=== PATIENT | female | born 1980 | race Caucasian/White ===

== ENCOUNTER 2020-11-21 19:24 | Emergency (ER) | payer MEDICAID, SELFPAY ==
--- NOTE | ~2020-11-21 | XR_ITS ---
EXAMINATION: XR CHEST CLINICAL INFORMATION: Upper respiratory symptoms COMPARISON: None TECHNIQUE: 2 views of the chest were obtained. FINDINGS: Lungs are clear. No focal consolidation or mass. Normal pulmonary vascularity. No pleural effusion or pneumothorax. Normal heart size. No acute osseous abnormality. XR/XR chest 2V IMPRESSION: No acute pulmonary disease.
[2020-11-21 21:06] VITALS: BP 119/68; PULSE 88; RESP 18; TEMP 37.1; O2SAT 96; BMI 33.2
[2020-11-21 22:00] VITALS: BP 107/70; PULSE 85; RESP 15; TEMP 36.4; O2SAT 96
--- NOTE | 2020-11-21 22:01 | ED.URI ---
HPI - URI/Sore Throat General Chief Complaint: Upper Respiratory Symptoms Stated Complaint: flu symptoms Time Seen by Provider: 11/21/20 21:32 Source: patient Mode of arrival: ambulatory Limitations: no limitations History of Present Illness HPI Narrative: 40-year-old female here with complaints of cough, headache, sore throat and body aches for several days. Patient did receive a COVID vaccine September. No fevers, shortness of breath or chest pain Related Data Allergies Allergy/AdvReac Type Severity Reaction Status Date / Time No Known Allergies Allergy Verified 11/21/20 21:06 Review of Systems Review of Systems: Yes all other systems are reviewed and are negative Constitutional: Constitutional: Reports no additional constitutional complaints, Reports body ache(s), Denies chills, Denies fever(s), Reports headache(s) and Denies weakness Eyes: Eyes: Reports no additional eye complaints and Denies change in vision ENT: Reports system reviewed and no additional complaints, except as documented, Denies dizziness, Reports headache(s), Denies nasal congestion, Denies nasal discharge, Denies neck pain and Reports sore throat Cardiovascular: Cardiovascular: Reports no additional cardiovascular complaints, Denies chest pain, Denies leg edema and Denies dyspnea Respiratory: Respiratory: Reports no additional respiratory complaints, Reports cough and Denies dyspnea Gastrointestinal: Gastrointestinal: Reports no additional gastrointestinal complaints, Denies abdominal pain, Denies diarrhea, Denies nausea and Denies vomiting Genitourinary: Genitourinary: Reports no additional female genitourinary complaints and Denies urinary incontinence Musculoskeletal: Musculoskeletal: Reports no additional musculoskeletal complaints, Denies back pain, Denies arthralgias, Denies joint swelling, Denies neck pain, Denies numbness and Denies tingling Integumentary/Breasts: Skin/Breast: Reports system reviewed and no additional complaints, except as docu and Denies rash Neurologic: Reports system reviewed and no additional complaints, except as documented, Denies Abnormal speech present, Denies dizziness, Reports headache(s), Denies numbness, Denies tingling and Denies weakness PMFSH Past Medical History Attestation statement: The following information was validated with the patient. Source: old records reviewed and nursing notes reviewed Surgical History H/O abdominal surgery S/P cholecystectomy Social History Social History Advance Directives: No Advance Directives Information Provided: No Patient : No Physical Exam Vital Signs: Vital Signs: Last Vital Signs Temp 97.6 F 11/21/20 22:00 Pulse 85 11/21/20 22:00 Resp 15 11/21/20 22:00 BP 107/70 11/21/20 22:00 Pulse Ox 96 11/21/20 22:00 Body Mass Index 33.2 Const: General: cooperative, healthy appearing, comfortable and no acute distress Orientation/consciousness: patient oriented x3 Limitations: no limitations HENMT: Head: Yes normal to inspection Ears: hearing grossly normal bilaterally General nose exam: Normal external nose present Face and sinus: Yes normal facial exam Mouth: Normal oral and palatal mucosa present Throat: Yes posterior oropharynx normal Eyes: General: appearance normal, both eyes and all related structures Pupils: Equal, round and reactive pupils present Neck: Neck: Yes normal visual inspection Chest: Chest palpation & inspection: normal inspection of the chest Resp: Effort & Inspection: normal respiratory effort Auscultation: clear to auscultation bilaterally Cardio: Rate: regular rate Rhythm: regular rhythm Peripheral pulses: Peripheral pulses 2+ throughout GI: Inspection: Yes normal to inspection Palpation (GI): Soft to palpation and nontender Auscultation: normal bowel sounds Back/Spine/Pelvis: Thoracic/Lumbar Spine: thoracic and lumbar spine normal to inspection Skin: General skin exam: no rashes or lesions noted Neuro: General: patient oriented x3, no focal motor deficits and normal sensation to monofilament Cranial nerves: Yes Equal, round and reactive pupils present Cognition (Neuro): normal cognition Speech: No Abnormal speech present Gait exam (Neuro): Normal gait present Motor exam (neuro): 5/5 motor strength present throughout Extrem: General: Yes normal to inspection Course Course Course Narrative: URI symptoms for several days. Will check chest x-ray and COVID screen 1210-COVID screen negative. Likely viral. Reviewed worrisome signs and symptoms when to return to the emergency department. Comfortable discharge home. MDM - URI/Sore Throat Medical Records Attestation: I reviewed the patient's medical records. Lab Data Attestation: I reviewed the patient's lab results. Labs: Lab Results 11/21/20 Range/Units 21:16 Coronavirus (PCR) NEGATIVE (Negative) Influenza Type A (PCR) NEGATIVE (Negative) Influenza Type B (PCR) NEGATIVE (Negative) RSV RNA Qual (PCR) NEGATIVE (Negative) Imaging Data Chest x-ray: Attestation: I personally reviewed and interpreted this imaging study as follows: Radiologist's impression: [address] [address] XRay Report Signed Patient: Tanja Bland MR#: [id number] : 1980 Acct:[id number] Age/Sex: 40 / F ADM Date: 11/21/20 Loc: .ED Attending Dr: Ordering Physician: Generic ED Physician Date of Service: 11/21/20 Procedure(s): XR chest 2V Accession Number(s): [id number] cc: Generic ED Physician~ EXAMINATION: XR CHEST CLINICAL INFORMATION: Upper respiratory symptoms COMPARISON: None TECHNIQUE: 2 views of the chest were obtained. FINDINGS: Lungs are clear. No focal consolidation or mass. Normal pulmonary vascularity.? No pleural effusion or pneumothorax. Normal heart size. No acute osseous abnormality. XR/XR chest 2V IMPRESSION: No acute pulmonary disease. Discharge Plan Discharge Clinical Impression: Viral infection Pharyngitis Qualifiers: Pharyngitis/tonsillitis etiology: unspecified etiology Qualified Code(s): J02.9 - Acute pharyngitis, unspecified Patient Disposition: Home, Self-Care Instructions: Pharyngitis (ED), Viral Syndrome (ED) Additional Instructions: Increase fluids, rest Take Motrin or Tylenol if able as needed for pain or fever COVID screen is negative Referrals: Damaris Vasquez MD [Primary Care Provider] - 2 days
[2020-11-21] MEDS: Ibuprofen 600 MG TABLET PO (22:51)
--- NOTE | 2020-11-21 23:09 | PC.NURSE ---
REPORT GIVEN TO ANISA BERUMEN.
[2020-11-22 00:01] LABS: Influenza A PCR NEGATIVE (Negative); Influenza B PCR NEGATIVE (Negative); Resp Syncy Virus RNA Qual PCR NEGATIVE (Negative); SARS COV2 PCR INHOUSE NEGATIVE (Negative)
== END 2020-11-22 00:33 | disposition home or self-care (01) ==
PROVIDERS: Emergency Provider Emergency Medicine; PCP Family Medicine
DX: B34.9 Viral infection, unspecified (principal); J02.9 Acute pharyngitis, unspecified; R05 Cough; R51.9 Headache, unspecified; R50.9 Fever, unspecified; Z20.822 Contact with and (suspected) exposure to COVID-19; Z79.899 Other long term (current) drug therapy
CPT/HCPCS: 0241U; 36415; 71046; 99283; 99284

== ENCOUNTER 2021-11-14 08:41 | Emergency (ER) | payer MEDICAID, SELFPAY ==
[2021-11-14 08:43] VITALS: BP 148/78; PULSE 92; RESP 18; TEMP 37.1; O2SAT 96; BMI 34.7
[2021-11-14 12:20] LABS: MANUAL DIFF FLAG NO
[2021-11-14 12:22] LABS: Basophils Absolute Auto 0.1 X10*3/uL (0.0-0.2); Basophils Percent Auto 0.8 % (0-2); Eosinophils Absolute Auto 0.2 X10*3/uL (0.0-0.4); Eosinophils Percent Auto 3.1 % (0-4); Hematocrit 41.7 % (37.0-47.0); Hemoglobin 13.6 g/dl (12.0-16.0); Imm Gran Abs Auto 0.04 X10*3/uL (0.00-0.03); Imm Gran Pct Auto 0.5 % (0.0-0.4); Lymphocytes Absolute Auto 1.9 X10*3/uL (1.2-4.9); Lymphocytes Percent Auto 24.7 % (20-40); Mean Corpuscular HGB Conc 32.6 g/dl (31.0-35.0); Mean Corpuscular Hemoglobin 31.5 pg (27.0-33.0); Mean Corpuscular Volume 96.5 fL (80.0-98.0); Monocytes Absolute Auto 0.8 X10*3/uL (0.1-1.2); Monocytes Percent Auto 10.1 % (2-11); Neutrophils Absolute Auto 4.7 x10*3/uL (2.0-8.3); Neutrophils Percent Auto 60.8 % (45-73); Platelet Count 409 X10*3/uL (160-400); Red Blood Count 4.32 X10*6/uL (4.20-5.50); Red Cell Distribution Width 13.2 % (11.0-16.0); White Blood Count 7.7 X10*3/uL (4.8-10.8)
[2021-11-14 12:27] LABS: INTERNATIONAL NORM RATIO 0.9 (0.9-1.1); Prothrombin Time 10.1 SEC (10.0-13.1)
[2021-11-14 12:48] LABS: HCG Quantitative < 2 mIU/mL
[2021-11-14 13:04] LABS: Alanine Aminotransferase 22 U/L (0-31); Albumin Level 4.4 g/dL (3.5-5.0); Alkaline Phosphatase 45 U/L (39-117); Anion Gap 18 (12-20); Aspartate Amino Transferase 20 U/L (5-31); Bilirubin Total 0.3 mg/dL (0.0-1.0); Blood Urea Nitrogen 12 mg/dL (9-16); Calcium 9.5 mg/dL (8.4-10.2); Carbon Dioxide 22 mmol/L (22-29); Chloride 104 mmol/L (96-108); Creatinine Clr Calc Pharmacy 98.9; Estimated Glomerular Filt Rate > 60; Glucose Random 96 mg/dL (60-115); Lipase 28 U/L (8-78); Magnesium 1.8 mg/dL (1.6-2.6); Potassium 4.2 mmol/L (3.3-5.1); Sodium 140 mmol/L (135-145); Total Protein 7.4 g/dL (6.5-8.0)
== END 2021-11-14 14:36 | disposition left against medical advice (07) ==
LOC: HO.ED 14:36
PROVIDERS: Physician Assistant Medical; Emergency Provider Emergency Medicine; PCP Family Medicine
DX: R19.7 Diarrhea, unspecified (principal); R10.9 Unspecified abdominal pain; Z79.899 Other long term (current) drug therapy
CPT/HCPCS: 36415; 80053; 83690; 83735; 84702; 85025; 85610; 99281; 99283

== ENCOUNTER 2025-02-21 13:39 | Outpatient (AMB) | payer OTHER, SELFPAY ==
--- NOTE | 2025-02-21 13:53 | MHC.PC.OV ---
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 Head Required: No Accompanied by: Self / Same As Patient Allergies clarithromycin (From Biaxin) Allergy (Mild, Verified 02/21/25 14:35) Unknown Medication List - Last Reconciled 02/21/25 by Carol Jacques PA-C bupropion HCl XL 150 mg PO DAILY buspirone 5 mg PO DAILY escitalopram oxalate 10 mg PO DAILY Tobacco use date assessed: 02/21/25 Dental Screening Dental Screen Date: 02/21/25 Did you have a dental visit in the last 12 months?: Yes Did you have a dental problem in the last 6 months where you did not have access to dental care?: No Was dental information given to patient?: Patient has dentist HPI HPI Comments History of Present Illness Details History of Present Illness The patient is a 44-year-old female presenting for a new patient visit to [facility] care and an annual physical exam. She required a new PCP due to an insurance change that was not accepted by her previous provider. Her last physical exam was over a year ago. The patient has a history of chronic neck and shoulder pain, low back pain, and sacroiliac joint pain, which has been previously referred for physical therapy. She also reports insomnia, carpal tunnel syndrome, and intermittent anxiety and depression, for which she sees a psychiatrist, Grace Villalobos, via telehealth. She has a self-reported history of attention deficit disorder (ADD). Current medications include bupropion 150 mg, buspirone 5 mg, and escitalopram 10 mg. Past surgical history includes a cholecystectomy, which resolved her previous chronic abdominal pain. A prior workup for abdominal pain was suspicious for diverticulosis, but a CT scan showed only some pockets and was not definitive. Her last colonoscopy was in 2014 at [facility] due to abdominal symptoms. She received an at-home colon cancer screening kit from her previous provider but did not use it due to the insurance change. Her mother has a history of hypothyroidism, and her father has hypercholesterolemia. She has had no recent falls or hospitalizations in the past year. 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 - Marital Status: . - Children: She has two children, ages 19 and 21. - Tobacco Use: Denies smoking. [facility] Medical History (Updated 02/21/25 @ 15:07 by Carol Jacques PA-C) Colon cancer screening Healthcare maintenance Annual physical exam Carpal tunnel syndrome, right ADD (attention deficit disorder) Chronic low back pain Anxiety and depression Chronic shoulder pain Chronic neck pain Cervical cancer screening SI (sacroiliac) joint inflammation Right hip pain Surgical History Hx laparoscopic cholecystectomy History of section History of liposuction of abdomen History of abdominoplasty History of endoscopy History of colonoscopy (~08/30/24) H/O abdominal surgery S/P cholecystectomy Family History Mother No problems noted. Father BP (high blood pressure) Social History Housing: House Alcohol intake: current Alcohol intake frequency: holidays/special occasions only Patient Tobacco Use Status: Never used Tobacco service: No Current occupational status: employed Cognitive needs: No Hearing needs: No Vision needs: No Questionnaire PHQ-9 Over the last 2 weeks, how often have you been bothered by any of the following problems? 1. Little interest or pleasure in doing things: not at all 2. Feeling down, depressed, or hopeless: not at all 3. Trouble falling or staying asleep, or sleeping too much: not at all 4. Feeling tired or having little energy: not at all 5. Poor appetite or overeating: not at all 6. Feeling bad about yourself - or that you are a failure or have let yourself or your family down: not at all 7. Trouble concentrating on things, such as reading the newspaper or watching television: not at all 8. Moving or speaking so slowly that other people could have noticed. Or the opposite - being so fidgety or restless that you have been moving around a lot more than usual: not at all 9. Thoughts that you would be better off or of hurting yourself in some way: not at all Total score: 0 Depression Screening Interpretation: Negative Depression Screening Done: Yes 03919 - PHQ-9 Billing: Yes Source: Developed by Drs. Alphonse Watts, Acacia Atkinson, Liam Verdin and colleagues, with an educational hemanth from [employer]. Thrive Questionnaire Date Thrive assessed: 02/21/25 I am a: Patient What is your living situation today?: I have a steady place to live Within the past 12 months, did the food you bought not last and you didn't have the money to get more?: Never true Within the past 12 months, did you worry whether your food would run out before you got money to buy more?: Never true Do you have trouble paying for medicines?: No Do you have trouble getting transportation to medical appointments?: No Do you have trouble paying your heating and electricity bill?: No Do you have trouble taking care of your child, family member or friend?: No Do you have trouble with day-to-day activities such as bathing, preparing meals, shopping, managing finances, etc.?: No Are you currently unemployed and looking for a job?: No Are you interested in more education?: No Please select the resources that you would like help with: None THRIVE Score: 0 AUDIT C Alcohol Use Questionnaire (AUDIT-C) 1. How often do you have a drink containing alcohol?: Monthly or less 2. How many drinks containing alcohol do you have on a typical day when you are drinking?: 1 or 2 3. How often do you have six or more drinks on one occasion?: Never Total Score: 1 Score Reviewed/Action Taken: No GER-7 AMB Questionnaire GER-7 Date GER - 7 assessed: 02/21/25 Feeling nervous, anxious, or on edge: 0 = Not at all Not being able to stop or control worryin = Not at all Worrying too much about different things: 0 = Not at all Trouble relaxin = Not at all Being so restless that it is hard to sit still: 0 = Not at all Becoming easily annoyed or irritable: 0 = Not at all Feeling afraid as if something awful might happen: 0 = Not at all Total GER-7 score (0-4 normal; 5-9 mild; 10-14 moderate; 15-21 severe): 0 Source: Developed by Drs. Alphonse Watts, Acacia Atkinson, Liam Verdin and colleagues, with an educational hemanth from [employer]. GER-7 Assessment Billing GER-7 Assessment Tool: GER-7 Assessment 10604 Review of Systems Narrative Review of Systems - Constitutional: Denies unintentional weight loss. - Eyes: Reports worsening vision due to age. Denies recent eye exam. - Respiratory: Denies dyspnea, either at rest or with activity. - Cardiovascular: Denies chest pain. - Gastrointestinal: Denies abdominal pain and epigastric pain. Denies melena or hematochezia. - Musculoskeletal: Reports chronic neck, shoulder, and low back pain. Reports pain in the right SI joint. - Neurological: Reports history of carpal tunnel syndrome, ADD. - Psychiatric: Reports intermittent anxiety and depression. Reports insomnia. Const All systems reviewed & are unremarkable except as noted in HPI and below Physical exam (Primary Care) Vital Signs: Last Vital Signs Temp 96.3 F L 02/21/25 13:57 Pulse 75 02/21/25 13:57 Resp 16 02/21/25 13:57 BP 115/66 02/21/25 13:57 Pulse Ox 98 02/21/25 13:57 Oxygen Delivery Method Room Air 02/21/25 13:57 Care Plan Goal for BP management: <140/90 at Goal BMI result Body Mass Index 30.1 BMI Assessment/Plan discussion: High BMI High, discussed plan: lifestyle, weight reduction, dietary, physical activity, alcohol moderation and other Tobacco/Smoking Status: Tobacco use Status Tobacco use date assessed 02/21/25 02/21/25 14:27 Patient Tobacco Use Status Never used Tobacco 02/21/25 14:27 PHQ-9: PHQ-9 Score PHQ-9: Total score 0 02/21/25 14:27 Depression Screening Interpretation: Negative Thrive Assessment: Date of Thrive Assessment Date Thrive assessed 02/21/25 02/21/25 14:27 Narrative Physical Exam Appearance: Alert. Oriented X3. No acute distress. Head: Normal external exam. Normocephalic. Atraumatic. Eyes: Pupils are equal, round, and reactive to light. Extraocular movements intact. Conjunctiva and sclera normal. Eyelids normal. Ears: External auditory canal normal. Tympanic membranes normal. Ears were very clean. No wax in them. Throat: Pharynx normal. Uvula midline. Moist mucous membranes. Neck: Normal inspection. Neck supple. Full range of motion. No adenopathy. Thyroid Normal. No meningeal signs. No neck mass noted. Chronic neck and shoulder pain noted. Cardiovascular: Normal heart rate and rhythm. Heart sound normal. No murmurs noted. Pulses normal throughout. Respiratory: No respiratory distress. Painless inspiration. Breath sounds normal. No wheezes/rales/rhonchi noted. Chest nontender. No accessory muscle usage noted or decreased air movement noted. Abdomen: Soft and nontender. Bowel sounds normal in all 4 quadrants. No distention noted. No organomegaly noted. No visible injury noted. No epigastric pain noted. Back: No costovertebral angle tenderness. Full range of motion noted. Low back pain noted. Skin: Skin warm and dry. Normal skin color. Normal skin turgor. No rashes/lesions/lacerations noted. Extremities: No lower extremity edema. Extremities exhibit normal range of motion. Extremities nontender. Neuro: Oriented X 3. No motor deficit. No sensory deficit. Reflexes normal. Carpal tunnel syndrome noted. Results Reviewed Results Reviewed: Results - Vitals: Blood pressure was elevated in 2021. - Procedures: Colonoscopy performed on 08/30/2014. Coding Level of Care Code New Pt Prev Care 40-64y(20594) Add On Preventative Visit Only Diagnoses Annual physical exam Z00.00 Healthcare maintenance Z00.00 Colon cancer screening Z12.11 Cervical cancer screening Z12.4 SI (sacroiliac) joint inflammation M46.1 Anxiety and depression F41.9; F32.A Additional Codes PHQ-9 - 94760 - PHQ-9 Billing: Yes ([id number]) GER-7 Assessment Billing - GER-7 Assessment Tool: GER-7 Assessment 42047 ([id number]) Time Spent (min) 60 Assessment & Plan Assessment & Plan (1) Annual physical exam: Code(s): Z00.00 - Encounter for general adult medical examination without abnormal findings Category: Medical (2) Healthcare maintenance: Code(s): Z00.00 - Encounter for general adult medical examination without abnormal findings Category: Medical Plan: This was an annual physical and new patient establishment visit. A comprehensive blood panel was ordered, including CBC, CMP, inflammatory markers, hemoglobin A1c, magnesium, cholesterol, liver enzymes, vitamin B12, vitamin D, and a urinalysis and thyroid panel. The patient was advised to take a multivitamin with vitamin D. A referral for a screening mammogram at [facility] will be placed. A referral for a cervical cancer screening with her OBGYN at [facility] will be placed. Follow-up can be in one year for her next annual exam, or sooner as needed. (3) Colon cancer screening: Code(s): Z12.11 - Encounter for screening for malignant neoplasm of colon Category: Medical Plan: The patient is due for a screening colonoscopy, as her last one was in 2014. The plan is to start with a Cologuard test. If the Cologuard is negative, the colonoscopy can be deferred for a few years. If it is positive, she will proceed with the colonoscopy. A referral to GI at [facility] for a colonoscopy will be placed now due to long wait times, and it can be canceled if the Cologuard is negative. (4) Cervical cancer screening: Code(s): Z12.4 - Encounter for screening for malignant neoplasm of cervix Category: Medical Plan: Refer to [facility] for annual cervical cancer screening. (5) SI (sacroiliac) joint inflammation: Code(s): M46.1 - Sacroiliitis, not elsewhere classified Category: Medical Plan: The patient has a history of right sacroiliac joint pain. A referral for physical therapy will be placed, and the patient will decide on the timing and location, possibly [facility]. (6) Anxiety and depression: Code(s): F41.9 - Anxiety disorder, unspecified; F32.A - Depression, unspecified Category: Medical Plan: The patient reports a history of anxiety and depression that comes and goes. She is managed by her psychiatrist, Grace Villalobos, on bupropion, buspirone, and escitalopram and does not require a separate therapist. No changes to her medication management were made at this visit. Plan Plan Patient was informed and verbally consented to the use of an ambient scribe for clinic note documentation during this visit. 1. Health Maintenance This was an annual physical and new patient establishment visit. A comprehensive blood panel was ordered, including CBC, CMP, inflammatory markers, hemoglobin A1c, magnesium, cholesterol, liver enzymes, vitamin B12, vitamin D, and a urinalysis and thyroid panel. The patient was advised to take a multivitamin with vitamin D. A referral for a screening mammogram at [facility] will be placed. A referral for a cervical cancer screening with her OBGYN at [facility] will be placed. Follow-up can be in one year for her next annual exam, or sooner as needed. 2. Screening For Malignant Neoplasm Of Colon The patient is due for a screening colonoscopy, as her last one was in 2014. The plan is to start with a Cologuard test. If the Cologuard is negative, the colonoscopy can be deferred for a few years. If it is positive, she will proceed with the colonoscopy. A referral to GI at [facility] for a colonoscopy will be placed now due to long wait times, and it can be canceled if the Cologuard is negative. 3. Sacroiliac Joint Pain The patient has a history of right sacroiliac joint pain. A referral for physical therapy will be placed, and the patient will decide on the timing and location, possibly [facility]. 4. Anxiety And Depression The patient reports a history of anxiety and depression that comes and goes. She is managed by her psychiatrist, Grace Villalobos, on bupropion, buspirone, and escitalopram and does not require a separate therapist. No changes to her medication management were made at this visit. Discussion Notes I discussed with the patient that this visit would serve as her annual physical. We went over her medical history in detail. I have placed referrals for physical therapy for her SI joint pain, a screening mammogram at [facility], and a referral to her [facility] at [facility] for her annual cervical cancer screening. I explained the plan for colon cancer screening. Since she is due, we will start with a Cologuard test. I informed her that she can use the kit she already has at home, and my office will update the provider information. I explained that if the test is negative, she will not need a colonoscopy this year and can wait a few years. However, if the test is positive, it does not mean she has cancer, but she will need to proceed with a colonoscopy. Due to long wait times, I am placing the GI referral to [facility] now, and we can cancel it if the Cologuard is negative. She agreed to this plan. I ordered a full panel of blood work and instructed her to go to the lab fasting for 10-12 hours. I also recommended she consider taking a daily multivitamin with vitamin D. We discussed that she does not need a referral for an ophthalmology exam and can schedule one on her own. I performed a physical exam which was normal. Assuming her lab work is normal, I recommended she follow up in one year for her next annual physical, but she can call for same-day appointments if anything comes up sooner. Orders: Orders PT Evaluation and Treatment Today M25.551 - Pain in right hip, M46.1 - Sacroiliitis, not elsewhere classified MM screening mammo BI Today Z12.31 - Encounter for screening mammogram for malignant neoplasm of breast Complete Blood Count Auto Diff Today Z00.00 - Encounter for general adult medical examination without abnormal findings Comprehensive [facility]. Panel Fast Today Z00.00 - Encounter for general adult medical examination without abnormal findings Erythrocyte Sedimentation Rate Today Z00.00 - Encounter for general adult medical examination without abnormal findings Magnesium Today Z00.00 - Encounter for general adult medical examination without abnormal findings Lipid Panel Today Z00.00 - Encounter for general adult medical examination without abnormal findings Vitamin D 25-OH Total Today Z00.00 - Encounter for general adult medical examination without abnormal findings UA CC w/rflx Micro + Cult Today Z00.00 - Encounter for general adult medical examination without abnormal findings TSH reflex Free T4 Today Z00.00 - Encounter for general adult medical examination without abnormal findings Hemoglobin A1c Today Z00.00 - Encounter for general adult medical examination without abnormal findings C Reactive Protein Today Z00.00 - Encounter for general adult medical examination without abnormal findings Vitamin B12 and Folate Today Z00.00 - Encounter for general adult medical examination without abnormal findings Microalbumin, Random (w Creat) Today E11.9 - Type 2 diabetes mellitus without complications Referrals Cologuard Test Z12.11 - Encounter for screening for malignant neoplasm of colon, Z12.12 - Encounter for screening for malignant neoplasm of rectum [facility] Referral Z12.4 - Encounter for screening for malignant neoplasm of cervix Gastroenterology Referral Z12.11 - Encounter for screening for malignant neoplasm of colon Patient Instructions: Patient Instructions - You will need to get blood work done. Please do not eat or drink anything for 10 to 12 hours before your blood test. The orders are in the computer, so you just need to go to a lab with your ID. - We are ordering a Cologuard test for colon cancer screening. The testing company may contact you, or you can use the kit you already have at home. If this test is positive, you will need to have a colonoscopy. - The physical therapy office will contact you within about a month to schedule an appointment for your back and hip pain. You can let them know when and where you would like to be seen. - You will receive a call within a month to schedule your screening mammogram at [facility]. - We have placed a referral for you to see your STICK ROLLER for your yearly exam. We have faxed it but also gave you a printed copy. - You do not need a referral to see an eye doctor; you can call and schedule an appointment with one that accepts your insurance. - Consider taking a daily multivitamin that includes Vitamin D. - If all your tests are normal, please schedule your next yearly physical in one year. However, if you need anything before then, you can call the office for an appointment.
[2025-02-21 13:57] VITALS: BP 115/66; PULSE 75; RESP 16; TEMP 35.7; O2SAT 98; BMI 30.1
--- OUTSIDE RECORDS SUMMARY | 2025-02-21 17:42 | XMS_ITS | Clinical Summary ---
Author Organization [address] Address [address] [place] [id number] Care Team Providers Care Director Of Corporate Sponsorships Name Role Phone Unavailable Primary Care Provider Unavailabl e Social History Tobacco Use Types Packs/Day Years Used Date Smoking Tobacco: Never Assessed Comments Unknown Sex and Gender Information Value Date Recorded Sex Assigned at Not on file Legal Sex Female 9:05 AM EDT Gender Identity Not on file Sexual Orientation Not on file Plan of Treatment Health Maintenance Due Date Last Done Comments HIV screening 09/29/1991 Hepatitis C screening 1996 Tetanus adult (Td q 10,TDAP once) 1998 Cervical cancer screening 09/29/1999 Breast cancer screening 2018 Lipid disorder screening 2018 Colon cancer screening, Colonoscopy 09/29/2023 Diabetes screening 09/29/2023 Influenza vaccine 10/07/2024 Covid-19 vaccine series (2024- season) 2024 RSV Immunization (1 - 1-dose 75+ series) 2053 Meningococcal B Vaccine Aged Out No l onger eligible based on patient's age to complete this topic Meningococcal Vaccine Aged Out No dede perez eligible based on patient's age to complete this topic Pneumococcal Vaccine (2 - 49 years) Aged Out No longer eligible based on patient's age to complete this topic
--- OUTSIDE RECORDS SUMMARY | 2025-02-21 17:42 | XMS_ITS | Encounter Summary ---
Author Organization [facility] Address [address] [place] [address] Care Team Providers Care In Store Demonstrator Name Role Phone Unavailable Primary Care Provider Unavailabl e Encounter Details Date Type Department Care Team (Late st Contact Info) Description 06/10/2018 Abstract Trans[facility] [address] [place] [address], [address] [place], [place] [id number] Becky Zavala Social History Tobacco Use Types Packs/Day Years Used Date Smoking Tobacco: Never Assessed Comments Unknown Sex and Gender Information Value Date Recorded Sex Assigned at Not on file Legal Sex Female 9:05 AM EDT Gender Identity Not on file Sexual Orientation Not on file documented as of this encounter Plan of Treatment Not on file documented as of this encounter Visit Diagnoses Not on filedocumented in this encounter
--- OUTSIDE RECORDS SUMMARY | 2025-02-21 17:42 | XMS_ITS | Patient Health Record ---
Author Organization [facility] Address [address] [place] [address] Care Team Providers Care Child Specialist Name Role Phone Damaris Vasquez MD Primary Care Provider Unavailab Sosa Zhong Unavailable [phone] Allergies Allergen (clinical drug ingredient) Drug/Non Drug Allergy documented on EMR Reaction Allergy Type Onset Date Status Biaxin sick,vomit Drug Allergy Active erythromycin Erythromycin sick,vomit Drug Allergy Active Z Pac sixck,vomit Drug Allergy Activ e Reason For Referral No Information Medications Medication SIG (Take, Route, Frequency, Duration) Notes Start Date End Date Status Naprosyn 500 MG 1 tablet with food o r milk as needed Orally every 12 hrs; Duration: 30 days 12/15/2017 Active Night Splint AFO - L1930 as directed 01/18/2018 Active Floxuridine 1 tab Oral Active LORazepam 0.5 MG 1 tablet as needed O rally every 6 hrs Active Social History Tobacco Use: Social History Observation Description Date Details (start date - stop date) Never Smoker NA - NA Tobacco Use/Smoking Question Answer Notes Are you a: nonsmoker Additional Findings: Tobacco Non-User Current no n-smoker Alcohol Screen Question Answer Notes Did you have a drink containing alcohol in the p ast year? Yes Points 0 Interpretation Negative Tobacco use other than smoking: Question Answer Notes Are you an other tobacco user? No Problems No Known Problems Plan Of Treatment Pending Test Test Name Order Date ,[id number] TENDON SHEATH/LIGAMENT 0 12/02/2017,[id number] TENDON SHEATH/LIGAMENT 1 50,[id number] TENDON SHEATH/LIGAMENT 1 03/20/2017 Insurance Providers Payer Name Payer Address Payer Phone Subscriber Number Group Number Insured Name Patient Relationship to Insured Coverage Start Date Coverage End Date [facility] [address] [facility] [place] [id number] Osman Bland Spouse - patient is the spouse of the insured Medical (General) History Medical History History ICD Code Anxiety Depression Gall bladder problems Surgical History Surgery Date(Month/Year) section 2003 & 2005 cholecystectomy 2014
== END 2025-02-21 14:54 | disposition home or self-care (01) ==
PROVIDERS: PCP Physician Assistant Medical; Visit Provider Physician Assistant Medical
DX: Z00.00 Encounter for general adult medical examination without abnormal findings (principal); M46.1 Sacroiliitis, not elsewhere classified; F41.9 Anxiety disorder, unspecified; F32.A Depression, unspecified; Z12.11 Encounter for screening for malignant neoplasm of colon

== ENCOUNTER → 2025-02-21 13:39 | Outpatient (BNVA) | payer OTHER, SELFPAY | PROVIDERS: PCP Physician Assistant Medical; Visit Provider Physician Assistant Medical | DX: Z00.00 Encounter for general adult medical examination without abnormal findings (principal); Z12.11 Encounter for screening for malignant neoplasm of colon; Z12.4 Encounter for screening for malignant neoplasm of cervix; M46.1 Sacroiliitis, not elsewhere classified; F41.9 Anxiety disorder, unspecified; F32.A Depression, unspecified | CPT/HCPCS: 96127 ==